=== PATIENT | male | born 2000 | race American Indian/Alaskan Native ===

== ENCOUNTER 2023-10-05 12:42 | Emergency (ER) | payer SELFPAY ==
[~2023-10-05] VITALS: Ht 175.3 cm; Wt 50.0 kg
[2023-10-05 14:25] VITALS: TEMP 98.3
[2023-10-05] MEDS ORDERED: traMADol 50 MG TAB PO ONE (17:45)
[2023-10-05 18:02] VITALS: BP 108/71; PULSE 74
== END 2023-10-05 18:02 | disposition home or self-care (01) ==
LOC: COL.ER 12:42
DX: M17.0 Bilateral primary osteoarthritis of knee (principal)